=== PATIENT | male | born 1960 | race Caucasian/White ===

== ENCOUNTER 2017-02-10 11:18 | Inpatient (IN) | payer MEDICAID, OTHER ==
[~2017-02-10] VITALS: Ht 177.8 cm; Wt 92.0 kg
[2017-02-10 12:15] LABS: BASOPHILS % (AUTO) 0.4 % (0.0-2.0); EOSINOPHILS % (AUTO) 1.4 % (1.0-6.0); HEMATOCRIT 46.8 % (41-53); HEMOGLOBIN 15.4 g/dL (13.5-17.5); LYMPHOCYTES # (AUTO) 2.1 K/uL (1.0-4.8); LYMPHOCYTES % (AUTO) 24.1 % (22.0-44.0); MEAN CORPUSCULAR HEMOGLOBIN 30.8 pg (26.0-34.0); MEAN CORPUSCULAR HGB CONC 32.9 G/dL (31.0-37.0); MEAN CORPUSCULAR VOLUME 94 fL (80-100); MONOCYTES # (AUTO) 0.5 K/uL (0.1-1.0); MONOCYTES % (AUTO) 5.5 % (2.0-9.0); NEUTROPHILS # (AUTO) 6.1 K/uL (1.8-7.7); NEUTROPHILS % (AUTO) 68.6 % (40.0-70.0); PLATELET COUNT (AUTO) 224 K/uL (150-450); RED BLOOD CELL COUNT(AUTO) 5.01 MIL/uL (4.50-5.90); RED CELL DISTRIBUTION WIDTH 12.4 % (11.5-14.5); WHITE BLOOD COUNT (AUTO) 8.9 K/uL (4.5-11.0)
[2017-02-10 12:26] LABS: ANION GAP 10 mmol/L (8-16); CALCIUM, TOTAL 9.2 mg/dL (8.8-10.5); CARBON DIOXIDE 30 mmol/L (22-29); CHLORIDE 103 mmol/L (98-107); CREATININE 1.07 mg/dL (0.60-1.30); GLOMERULAR FILTR. RATE CALC > 60 mL/min (>60); POTASSIUM 4.6 mmol/L (3.5-5.1); SODIUM SERUM 143 mmol/L (136-145); UREA NITROGEN, BLOOD 14 mg/dL (7-18)
[2017-02-10 12:29] LABS: ALANINE AMINOTRANSFERASE 51 U/L (12-78); ALBUMIN 4.1 g/dL (3.4-5.0); ASPARTATE AMINOTRANSFERASE 19 U/L (15-37); BILIRUBIN,TOTAL 1.2 mg/dL (0.1-1.0); TOTAL PROTEIN, SERUM 7.6 g/dL (6.4-8.2)
[2017-02-10] MEDS ORDERED: ZOLPIDEM TARTRATE 10 MG TABLET PO PRN (15:30)
[2017-02-10] MEDS ORDERED: MAGNESIUM HYDROXIDE SUSPENSION 30 ML UDCUP PO PRN (15:30)
[2017-02-10] MEDS ORDERED: PROMETHAZINE HCL 25 MG TABLET PO PRN (15:30)
[2017-02-10] MEDS ORDERED: ACETAMINOPHEN 325 MG TABLET PO PRN (15:30)
[2017-02-10] MEDS ORDERED: MAG HYDROX/AL HYDROX/SIMETH ES 30 ML SUSPENSION UDCUP PO PRN (15:30)
[2017-02-10] MEDS ORDERED: QUEtiapine FUMARATE 100 MG TABLET PO PRN (15:30)
[2017-02-10] MEDS ORDERED: GuaiFENesin/D-METHORPHAN [SUGAR-FREE] 200-20MG/10 ML SYRUP UDCUP PO PRN (15:30)
[2017-02-10] MEDS ORDERED: TUBERCULIN, PURIFIED PROTEIN DERIVATIVE 5 TU/0.1 ML SYG ID ONE (15:30)
[2017-02-10] MEDS ORDERED: LORazepam 2 MG TABLET PO PRN (15:30)
[2017-02-10] MEDS ORDERED: HydrOXYzine PAMOATE 50 MG CAPSULE PO PRN (15:30)
[2017-02-10] MEDS ORDERED: LOPERAMIDE HCL 2 MG CAPSULE PO PRN (15:30)
[2017-02-10] MEDS ORDERED: LORazepam 2 MG TABLET PO ONE (18:15)
[2017-02-10] MEDS: THIAMINE HCL 100 MG TABLET PO SCH (19:25)
[2017-02-10 19:54] VITALS: BP_SYST 136; BP_SYST 140; BP_DIAS 79; BP_DIAS 95
[2017-02-10 19:57] LABS: GLUCOSE,POINT OF CARE 204 MG/DL (70-110)
[2017-02-10] MEDS ORDERED: DENTURE ADHESIVE 68 GM CREAM DT PRN (20:00)
[2017-02-10] MEDS ORDERED: DENTURE CLEANSER TABLET [8'S] DT PRN (20:00)
[2017-02-10] MEDS ORDERED: GLUCAGON,HUMAN RECOMBINANT 1 MG VIAL IM PRN (20:00)
[2017-02-11 02:45] VITALS: BP 119/66
[2017-02-11 04:03] VITALS: BP 132/82
[2017-02-11] MEDS ORDERED: PNEUMOCOCCAL VACCINE POLYVALENT 0.5 ML VIAL [PPSV23] IM ONE (05:30)
[2017-02-11 06:18] LABS: GLUCOSE,POINT OF CARE 277 MG/DL (70-110)
[2017-02-11] MEDS: MetFORMIN HCL 500 MG TABLET PO SCH ×2 (07:04→17:10)
[2017-02-11] MEDS: INSULIN ASPART 100 UNITS/ML SQ PRN ×2 (07:06→07:20)
[2017-02-11 08:04] LABS: BASOPHILS % (AUTO) 0.4 % (0.0-2.0); EOSINOPHILS % (AUTO) 2.5 % (1.0-6.0); HEMATOCRIT 43.7 % (41-53); HEMOGLOBIN 14.4 g/dL (13.5-17.5); LYMPHOCYTES # (AUTO) 2.6 K/uL (1.0-4.8); LYMPHOCYTES % (AUTO) 38.1 % (22.0-44.0); MEAN CORPUSCULAR VOLUME 94 fL (80-100); MONOCYTES # (AUTO) 0.5 K/uL (0.1-1.0); MONOCYTES % (AUTO) 7.1 % (2.0-9.0); NEUTROPHILS # (AUTO) 3.6 K/uL (1.8-7.7); NEUTROPHILS % (AUTO) 51.9 % (40.0-70.0); PLATELET COUNT (AUTO) 196 K/uL (150-450); RED BLOOD CELL COUNT(AUTO) 4.65 MIL/uL (4.50-5.90); RED CELL DISTRIBUTION WIDTH 12.2 % (11.5-14.5); WHITE BLOOD COUNT (AUTO) 6.9 K/uL (4.5-11.0)
[2017-02-11 08:14] LABS: HEMOGLOBIN A1C 10.5 % (4.5-6.2)
[2017-02-11 08:30] LABS: ALANINE AMINOTRANSFERASE 44 U/L (12-78); ALBUMIN 3.5 g/dL (3.4-5.0); ANION GAP 5 mmol/L (8-16); ASPARTATE AMINOTRANSFERASE 16 U/L (15-37); BILIRUBIN,TOTAL 0.6 mg/dL (0.1-1.0); CARBON DIOXIDE 31 mmol/L (22-29); CHLORIDE 100 mmol/L (98-107); CHOL/HDL RATIO 4.5 (4.2-7.3); CREATININE 0.93 mg/dL (0.60-1.30); GLOMERULAR FILTR. RATE CALC > 60 mL/min (>60); POTASSIUM 4.1 mmol/L (3.5-5.1); SODIUM SERUM 136 mmol/L (136-145); THYROID STIMULATING HORMONE 1.05 uIU/mL (0.36-3.74); TOTAL PROTEIN, SERUM 6.7 g/dL (6.4-8.2); UREA NITROGEN, BLOOD 13 mg/dL (7-18)
[2017-02-11 08:35] VITALS: BP 118/65
[2017-02-11] MEDS ORDERED: DULoxetine HCL 20 MG CAPSULE PO SCH (09:00)
[2017-02-11] MEDS: THIAMINE HCL 100 MG TABLET PO SCH ×2 (10:11→17:10)
[2017-02-11] MEDS: FOLIC ACID 1 MG TABLET PO SCH (10:12)
[2017-02-11] MEDS: NICOTINE 21 MG/24 HOUR PATCH TD SCH (10:12)
[2017-02-11] MEDS: NALTREXONE HCL 50 MG TABLET PO SCH (10:12)
[2017-02-11] MEDS: MULTIVITAMINS WITH MINERALS, THERAPEUTIC TABLET PO SCH (10:12)
[2017-02-11 12:50] VITALS: BP 131/67
[2017-02-11] MEDS ORDERED: DULO30CA2 PO (14:08)
[2017-02-11] MEDS ORDERED: NALT50 PO (14:08)
[2017-02-11 16:00] VITALS: BP 135/69
[2017-02-11 16:57] LABS: GLUCOSE,POINT OF CARE 254 MG/DL (70-110)
[2017-02-12 00:25] VITALS: BP 136/79
[2017-02-12 06:15] LABS: GLUCOSE,POINT OF CARE 183 MG/DL (70-110)
[2017-02-12] MEDS: MetFORMIN HCL 500 MG TABLET PO SCH (06:43)
[2017-02-12] MEDS: NALTREXONE HCL 50 MG TABLET PO SCH (08:23)
[2017-02-12] MEDS: THIAMINE HCL 100 MG TABLET PO SCH (08:23)
[2017-02-12] MEDS: FOLIC ACID 1 MG TABLET PO SCH (08:23)
[2017-02-12] MEDS: MULTIVITAMINS WITH MINERALS, THERAPEUTIC TABLET PO SCH (08:23)
[2017-02-12] MEDS: NICOTINE 21 MG/24 HOUR PATCH TD SCH (08:25)
[2017-02-12] MEDS ORDERED: METF10002 PO (08:27)
[2017-02-12 08:32] VITALS: BP 140/71
[2017-02-12] MEDS ORDERED: DULoxetine HCL 30 MG CAPSULE PO SCH (09:00)
== END 2017-02-12 09:30 | disposition home or self-care (01) | DRG 751 ==
LOC: EMS 11:19 → EEVIPCON 11:19 → B2S 18:22
PROVIDERS: ADMIT Psychiatry & Neurology Psychiatry; ATTEND Psychiatry & Neurology Psychiatry
PROC: GZ51ZZZ Individual Psychotherapy, Behavioral (ICD-10-PCS; 2017-02-10)
PROC: 3E0234Z Introduction of Serum, Toxoid and Vaccine into Muscle, Percutaneous Approach (ICD-10-PCS; principal; 2017-02-11)
DX: F33.9 Major depressive disorder, recurrent, unspecified (principal); E11.65 Type 2 diabetes mellitus with hyperglycemia; R45.851 Suicidal ideations; F15.10 Other stimulant abuse, uncomplicated; F43.21 Adjustment disorder with depressed mood; E66.9 Obesity, unspecified; I25.10 Atherosclerotic heart disease of native coronary artery without angina pectoris; Z91.19 Patient's noncompliance with other medical treatment and regimen; Z65.3 Problems related to other legal circumstances; Z23 Encounter for immunization; Z68.29 Body mass index [BMI] 29.0-29.9, adult
CPT/HCPCS: 82962; 83036; 84439; 84443; 86592; 90471; 99285; G0480